=== PATIENT | male | born 1970 | race Caucasian/White ===

== ENCOUNTER 2020-06-09 07:30 | Inpatient (IN) | payer OTHER ==
[~2020-06-09] VITALS: Ht 165.1 cm; Wt 69.4 kg
[~2020-06-09 07:30] MED LIST: BUPIVACAINE HCL 0.25% 30ML VIAL As Ordered ONE; CLOB5CR TOP; DOCUSATE SODIUM 100 MG CAP ONE; HEPARIN SOD (PORCINE) 5000UNITS/ML VIAL (J1644 PER 1000UNITS) ONE; LIDOCAINE 1% SDV 30ML VIAL As Ordered ONE; ONDANSETRON 4MG/2ML VIAL ONE; PERCOCET 5MG/325MG TAB ONE; ceFAZolin 1GM VIAL (J0690 PER 500MG) As Ordered ONE; ceFAZolin 1GM VIAL (J0690 PER 500MG) ONE; fentaNYL 100 MCG/2 ML INJECTION (J3010) ONE; oxyCODONE 5MG TAB ONE
[2020-06-09] MEDS ORDERED: LIDOCAINE 2% 100MG/5ML SDV (FOR ANES.) As Ordered ONE (08:11)
[2020-06-09] MEDS ORDERED: ROCURONIUM BROMIDE 50 MG/5 ML VIAL As Ordered ONE ×2 (08:11→08:20)
[2020-06-09] MEDS ORDERED: dexameTHASONE 4 MG/ML 1ML VIAL (J1100 PER 1MG) As Ordered ONE (08:11)
[2020-06-09] MEDS ORDERED: HYDROmorphone HCL 2 MG/ML 1ML VIAL (J1170) As Ordered ONE (08:11)
[2020-06-09] MEDS ORDERED: ONDANSETRON 4MG/2ML VIAL As Ordered ONE ×2 (08:11→12:40)
[2020-06-09] MEDS ORDERED: fentaNYL 100 MCG/2 ML INJECTION (J3010) As Ordered ONE ×2 (08:11→12:40)
[2020-06-09] MEDS ORDERED: propofoL 200 MG/20 ML VIAL As Ordered ONE (08:11)
[2020-06-09] MEDS ORDERED: MIDAZOLAM INJ 2MG/2ML VIAL (J2250 PER 1MG) As Ordered ONE (08:11)
[2020-06-09] MEDS ORDERED: PHENYLephrine HCL 500 MCG/5 ML (100MCG/ML) SYRINGE (J2370) As Ordered ONE (08:14)
[2020-06-09] MEDS ORDERED: SUGAMMADEX SODIUM 500 MG/5 ML VIAL (BRIDION) ONE (08:20)
[2020-06-09] MEDS ORDERED: ACETAMINOPHEN 1000MG 100ML IV BTL (OFIRMEV) (J0131 PER 10MG) ONE (08:20)
[2020-06-09] MEDS ORDERED: LABETALOL 100MG/20ML VIAL ONE (08:20)
[2020-06-09] MEDS ORDERED: ROCURONIUM BROMIDE 50 MG/5 ML VIAL ONE ×2 (08:20→09:47)
[2020-06-09] MEDS ORDERED: ACETAMINOPHEN 1000MG 100ML IV BTL (OFIRMEV) (J0131 PER 10MG) As Ordered ONE (08:29)
[2020-06-09] MEDS ORDERED: SUGAMMADEX SODIUM 500 MG/5 ML VIAL (BRIDION) As Ordered ONE (08:32)
[2020-06-09] MEDS ORDERED: LABETALOL 100MG/20ML VIAL As Ordered ONE (08:47)
[2020-06-09] MEDS ORDERED: LIDOCAINE 2% 100MG/5ML SDV (FOR ANES.) ONE (09:47)
[2020-06-09] MEDS ORDERED: propofoL 200 MG/20 ML VIAL ONE (09:47)
[2020-06-09] MEDS ORDERED: MIDAZOLAM INJ 2MG/2ML VIAL (J2250 PER 1MG) ONE (09:47)
[2020-06-09] MEDS ORDERED: HYDROmorphone HCL 2 MG/ML 1ML VIAL (J1170) ONE (09:47)
[2020-06-09] MEDS ORDERED: PHENYLephrine HCL 500 MCG/5 ML (100MCG/ML) SYRINGE (J2370) ONE (09:47)
[2020-06-09] MEDS ORDERED: ONDANSETRON 4MG/2ML VIAL ONE (09:47)
[2020-06-09] MEDS ORDERED: PERCOCET 5MG/325MG TAB ONE (09:47)
[2020-06-09] MEDS ORDERED: fentaNYL 100 MCG/2 ML INJECTION (J3010) ONE (09:47)
[2020-06-09] MEDS ORDERED: oxyCODONE 5MG TAB As Ordered ONE ×2 (12:40→13:02)
[2020-06-09] MEDS ORDERED: PERCOCET 5MG/325MG TAB As Ordered ONE ×2 (15:45→21:47)
[2020-06-09] MEDS ORDERED: ceFAZolin 1GM VIAL (J0690 PER 500MG) As Ordered ONE (16:18)
[2020-06-09] MEDS ORDERED: DOCUSATE SODIUM 100 MG CAP As Ordered ONE (21:47)
[2020-06-09] MEDS ORDERED: HEPARIN SOD (PORCINE) 5000UNITS/ML VIAL (J1644 PER 1000UNITS) As Ordered ONE (21:47)
[2020-06-10] MEDS ORDERED: ceFAZolin 1GM VIAL (J0690 PER 500MG) ONE (00:31)
[2020-06-10] MEDS ORDERED: ceFAZolin 1GM VIAL (J0690 PER 500MG) As Ordered ONE (00:31)
[2020-06-10] MEDS ORDERED: PERCOCET 5MG/325MG TAB As Ordered ONE ×3 (05:12→16:17)
[2020-06-10] MEDS ORDERED: PERCOCET 5MG/325MG TAB ONE ×3 (05:12→16:17)
[2020-06-10] MEDS ORDERED: HEPARIN SOD (PORCINE) 5000UNITS/ML VIAL (J1644 PER 1000UNITS) ONE (05:12)
[2020-06-10] MEDS ORDERED: HEPARIN SOD (PORCINE) 5000UNITS/ML VIAL (J1644 PER 1000UNITS) As Ordered ONE (05:12)
[2020-06-10] MEDS ORDERED: DOCUSATE SODIUM 100 MG CAP As Ordered ONE (09:25)
[2020-06-10] MEDS ORDERED: DOCUSATE SODIUM 100 MG CAP ONE (09:25)
[2020-07-10 23:52] LABS: HEMATOCRIT 38.6 % (42.0-52.0); HEMOGLOBIN 12.7 g/dl (13.5-17.5); MEAN CORPUSCULAR HEMOGLOBIN 28.2 pg (27.0-33.0); MEAN CORPUSCULAR HGB CONC 32.9 g/dl (32.0-36.5); MEAN CORPUSCULAR VOLUME 85.6 fl (80.0-96.0); PLATELET COUNT, AUTOMATED 289 10^3/uL (150-450); RED BLOOD COUNT 4.51 10^6/uL (4.30-6.10); WHITE BLOOD COUNT 6.9 10^3/uL (4.0-10.0)
== END 2020-06-10 17:00 | disposition home or self-care (01) | DRG 658 ==
LOC: M MSPAV 07:30
PROVIDERS: ADMIT Urology; ATTEND Urology
PROC: 0TT14ZZ Resection of Left Kidney, Percutaneous Endoscopic Approach (ICD-10-PCS; principal; 2020-06-09)
PROC: 8E0W4CZ Robotic Assisted Procedure of Trunk Region, Percutaneous Endoscopic Approach (ICD-10-PCS; 2020-06-09)
DX: C64.2 Malignant neoplasm of left kidney, except renal pelvis (principal)